=== PATIENT | female | born 2000 | race Caucasian/White ===

== ENCOUNTER 2019-04-26 20:07 | Emergency (ER) | payer BC ==
[~2019-04-26] VITALS: Ht 170.2 cm; Wt 149.0 kg
[2019-04-26] MEDS ORDERED: VYVA20CA (20:27)
[2019-04-26] MEDS ORDERED: OLAN2.5T25 (20:27)
[2019-04-26] MEDS ORDERED: BUPR150T3 (20:27)
[2019-04-26 20:43] LABS: HEMOGLOBIN 13.3 g/dl (12.0-15.5); MEAN CORPUSCULAR HGB CONC 31.7 g/dl (32.0-36.5); PLATELET COUNT, AUTOMATED 315 10^3/uL (150-450); RED BLOOD COUNT 5.12 10^6/uL (4.00-5.40); WHITE BLOOD COUNT 6.8 10^3/uL (4.0-10.0)
[2019-04-26 20:55] VITALS: BP 114/66
[2019-04-26 21:10] LABS: HCG, SERUM QUALITATIVE NEGATIVE (NEGATIVE)
[2019-04-26 21:25] LABS: ACETAMINOPHEN LEVEL < 2.0 UG/ML (10.0-30.0); ALBUMIN 3.9 GM/DL (3.2-5.2); ALT/SGPT 21 U/L (12-78); BILIRUBIN,DIRECT 0.3 MG/DL (0.0-0.2); BILIRUBIN,TOTAL 0.6 MG/DL (0.2-1.0); BLOOD UREA NITROGEN 8 MG/DL (7-18); CALCIUM LEVEL 9.1 MG/DL (8.5-10.1); CARBON DIOXIDE LEVEL 28 MEQ/L (21-32); CHLORIDE LEVEL 109 MEQ/L (98-107); CREATININE FOR GFR 0.93 MG/DL (0.55-1.30); ETHYL ALCOHOL (ETHANOL) < 0.003 % (0.000-0.010); GLUCOSE, FASTING 74 MG/DL (70-100); POTASSIUM SERUM 4.5 MEQ/L (3.5-5.1); SALICYLATE LEVEL 2.9 MG/DL (5.0-30.0); SODIUM LEVEL 142 MEQ/L (136-145); THYROID STIMULATING HORMONE 0.576 uIU/ML (0.463-3.98); TOTAL PROTEIN 7.3 GM/DL (6.4-8.2)
[2019-04-26] MEDS ORDERED: OLAN2.5T25 PO (22:26)
[2019-04-26] MEDS ORDERED: VYVA20CA PO (22:26)
[2019-04-26] MEDS ORDERED: OLAN20TA14 PO (22:26)
[2019-04-26] MEDS ORDERED: BUPR150T3 PO (22:26)
[2019-04-26 23:34] LABS: AMPHETAMINES LEVEL URINE POSITIVE (NEGATIVE); BARBITURATES URINE NEGATIVE (NEGATIVE); BENZODIAZEPINES URINE NEGATIVE (NEGATIVE); CANNABINOIDS URINE POSITIVE (NEGATIVE); COCAINE METABOLITE URINE NEGATIVE (NEGATIVE); METHADONE URINE NEGATIVE (NEGATIVE); OPIATES URINE NEGATIVE (NEGATIVE); PHENCYCLIDINE URINE NEGATIVE (NEGATIVE)
== END 2019-04-27 01:29 | disposition home or self-care (01) ==
LOC: M ED 20:07
DX: F32.9 Major depressive disorder, single episode, unspecified (principal); R45.851 Suicidal ideations; Z98.84 Bariatric surgery status; F12.10 Cannabis abuse, uncomplicated; Z79.899 Other long term (current) drug therapy
CPT/HCPCS: 80048; 80076; 80307; 84443; 84703; 85027; 99284; G0480

== ENCOUNTER 2023-05-13 20:48 | Emergency (ER) | payer BC ==
[~2023-05-13] VITALS: Ht 170.2 cm; Wt 94.8 kg
[~2023-05-13 20:48] MED LIST: BUPR150T12; BUPR150T12 PO; OLAN2.5T25; OLAN2.5T25 PO; OLAN20TA14 PO; VYVA20CA; VYVA20CA PO
[2023-05-13 21:36] LABS: BASO # 0.1 10^3/uL (0.0-0.2); BASO % 0.7 % (0.0-1.0); EOS # 0.3 10^3/uL (0.0-0.5); EOS % 3.5 % (0.0-3.0); HEMATOCRIT 29.1 % (36.0-47.0); LYMPH # 2.1 10^3/uL (1.5-5.0); LYMPH % 25.1 % (24.0-44.0); MEAN CORPUSCULAR HEMOGLOBIN 22.4 pg (27.0-33.0); MEAN CORPUSCULAR HGB CONC 30.9 g/dl (32.0-36.5); MEAN CORPUSCULAR VOLUME 72.4 fl (80.0-96.0); MONO # 0.6 10^3/uL (0.0-0.8); MONO % 6.5 % (2.0-8.0); NEUTROPHILS # 5.4 10^3/uL (1.5-8.5); NEUTROPHILS % 63.5 % (36.0-66.0); PLATELET COUNT, AUTOMATED 462 10^3/uL (150-450); RED BLOOD COUNT 4.02 10^6/uL (4.00-5.40); WHITE BLOOD COUNT 8.5 10^3/uL (4.0-10.0)
[2023-05-13 22:03] LABS: ALBUMIN 3.3 G/DL (3.2-5.2); ALKALINE PHOSPHATASE 65 U/L (46-116); ALT/SGPT 19 U/L (7.0-40); AST/SGOT 30 U/L (<34); BILIRUBIN,DIRECT < 0.1 MG/DL (<0.4); BILIRUBIN,TOTAL 0.2 MG/DL (0.3-1.2); BLOOD UREA NITROGEN 12 MG/DL (9-23); CALCIUM LEVEL 8.9 MG/DL (8.5-10.1); CARBON DIOXIDE LEVEL 20 MMOL/L (20-31); CHLORIDE LEVEL 111 MMOL/L (98-107); GLOMERULAR FILTRATION RATE > 60.0 (>60); GLUCOSE, FASTING 94 MG/DL (60-100); SODIUM LEVEL 138 MMOL/L (136-145); TOTAL PROTEIN 6.4 G/DL (5.7-8.2)
[2023-05-13 22:31] LABS: IRON (FE) 12 UG/DL (50-170); PERCENT SATURATION 3.9 % (13.2-45.0); TOTAL IRON BINDING CAPACITY 307 UG/DL (250-425)
[2023-05-13] MEDS ORDERED: NORCO 5/325MG TABLET (HOME DOSE PACK) PO ONE (22:50)
[2023-05-13] MEDS ORDERED: MORPHINE 2 MG/ML 1ML VIAL IV ONE (22:50)
[2023-05-13] MEDS ORDERED: HYDR-3713 PO (23:48)
[2023-05-14 00:16] LABS: HEMATOCRIT 31.3 % (36.0-47.0); HEMOGLOBIN 9.5 g/dl (12.0-15.5); MEAN CORPUSCULAR HGB CONC 30.4 g/dl (32.0-36.5); MEAN CORPUSCULAR VOLUME 72.6 fl (80.0-96.0); PLATELET COUNT, AUTOMATED 540 10^3/uL (150-450); RED BLOOD COUNT 4.31 10^6/uL (4.00-5.40); WHITE BLOOD COUNT 12.1 10^3/uL (4.0-10.0)
[2023-05-14 00:18] VITALS: BP 126/74; TEMP 97.9; O2SAT 98
== END 2023-05-14 00:46 | disposition home or self-care (01) ==
LOC: EDBD 20:48 → M ED 20:48
DX: S52.135A Nondisplaced fracture of neck of left radius, initial encounter for closed fracture (principal); S52.612A Displaced fracture of left ulna styloid process, initial encounter for closed fracture; D50.9 Iron deficiency anemia, unspecified; V49.40XA Driver injured in collision with unspecified motor vehicles in traffic accident, initial encounter; Z79.1 Long term (current) use of non-steroidal anti-inflammatories (NSAID); Z79.899 Other long term (current) drug therapy

== ENCOUNTER → 2023-05-16 | Outpatient (CLI) | payer BC ==
[~2023-05-16] MED LIST changes: +HYDR-3713 PO
== END ==
LOC: M SOG 09:51
PROVIDERS: ATTEND Orthopaedic Surgery
DX: S52.612D Displaced fracture of left ulna styloid process, subsequent encounter for closed fracture with routine healing (principal); M25.532 Pain in left wrist